=== PATIENT | male | born 1935 | race Caucasian/White ===

== ENCOUNTER 2016-08-17 14:11 | Inpatient (IN) | payer MEDICARE, OTHER ==
[2016-08-17 14:34] LABS: Hematocrit 41 % (42-52); Hemoglobin 13.3 g/dl (14.0-18.0); Mean Corpuscular HGB Conc 33 g/dl (31-36); Mean Corpuscular Hemoglobin 33 pg (27-31); Mean Corpuscular Volume 100 fL (80-94); Mean Platelet Volume 7 um3 (7.4-10.4); Red Blood Count 4.05 10^6/ul (4.0-5.4); Red Cell Distribution Width 14 % (10.5-15); White Blood Count 8.8 10^3/ul (3.5-10.8)
[2016-08-17 14:50] LABS: Troponin I 0.01 ng/mL (<0.04)
[2016-08-17 14:52] LABS: ALT 23 U/L (7-52); Albumin 3.6 g/dL (3.2-5.2); Alkaline Phosphatase 124 U/L (34-104); BUN/Creatinine Ratio 23.8 (8-20); Blood Urea Nitrogen 46 mg/dL (6-24); CO2 Carbon Dioxide 28 mmol/L (22-32); Calcium 9.3 mg/dL (8.6-10.3); Chloride 93 mmol/L (101-111); EGFR African American 43.2 (>60); EGFR Non-African American 33.6 (>60); Globulin 3.6 g/dL (2-4); Glucose 162 mg/dL (70-100); Sodium 130 mmol/L (133-145); Total Protein 7.2 g/dL (6.4-8.9)
[2016-08-17] MEDS ORDERED: NS 0.9% 1000 ML* 1,000 ML IV ONE (14:57)
--- NOTE | 2016-08-17 15:07 | RAD ---
Indication: Hypoxemia, ventricular tachycardia. Single frontal view of the chest performed at 1438 hours was reviewed. Comparison is made with previous exam dated 05/27/2016. Cardiomegaly is noted. No alveolar consolidation is noted. Patient status post transsternal thoracotomy. IMPRESSION: CARDIOMEGALY WITHOUT DEFINITE EVIDENCE OF ACTIVE CARDIOPULMONARY DISEASE IS NOTED.
[2016-08-17 15:22] LABS: TSH (Thyroid Stimulating Horm) 2.25 mcIU/mL (0.34-5.60)
[2016-08-17 16:30] LABS: Magnesium 2.3 mg/dL (1.9-2.7)
[2016-08-17 16:46] LABS: Urine Bilirubin Negative (Negative); Urine Glucose Negative (Negative); Urine Nitrite Negative (Negative)
[2016-08-17] MEDS ORDERED: NS 0.9% 500 ML* 500 ML IV ONE (17:05)
[2016-08-17] MEDS ORDERED: Acetaminophen TAB* 325 MG PO PRN (17:07)
[2016-08-17] MEDS ORDERED: Morphine INJ* 2 MG/ML 1 ML CARPUJECT IV PRN (17:07)
[2016-08-17] MEDS ORDERED: Metolazone TAB* 5 MG PO SCH (17:15)
[2016-08-17] MEDS: Clopidogrel TAB* 75 MG PO SCH (18:54)
[2016-08-17] MEDS: Albuterol 2.5 MG/3 ML NEB.SOL* (0.083%) INH SCH (19:31)
[2016-08-17] MEDS: Mometasone/Formoter 200/5 MDI INH SCH (20:09)
[2016-08-17] MEDS: Magnesium Oxide TAB* 400 MG PO SCH (21:22)
[2016-08-17] MEDS: traZODone TAB* 100 MG PO SCH (21:22)
[2016-08-17] MEDS: Heparin VIAL(*) 5000 UNITS/ML VIAL (FIVE THOUSAND) SUBCUT SCH (21:22)
--- NOTE | 2016-08-17 21:27 | HP ---
HISTORY AND PHYSICAL:* ADDENDUM: ASSESSMENT AND PLAN: Please note the patient has history of chronic renal disease, stage 3. His creatinine today is 1.9, in the past had been in the 1.5 range. His slight worsening of creatinine is most likely due to renal issues. At this point, he probably has had problems with breathing and had been diuresed may be slightly too much. Nevertheless, he is going to be placed on intravenous fluids as mentioned above . His diuretics for the time being will be unchanged. I will also ask Cardiology to see the patient in consultation in case they had any further recommendations[place] [id number]/[facility] #: [id number] MTDD
--- NOTE | 2016-08-17 21:36 | HP ---
ADDENDUM NOW INCLUDED ON THIS REPORT HISTORY AND PHYSICAL: DATE OF ADMISSION: 08/17/16 PRIMARY CARE PHYSICIAN: Amauri Flower MD WIRE ROPE FABRICATION SUPERVISOR: Luz Samuel MD CHIEF COMPLAINT: Syncope and collapse. HISTORY OF PRESENT ILLNESS: Curt Logan is an 80-year-old male with history of severe COPD, on oxygen at 8 L at home continuously as well as diastolic CHF and an episode of ventricular tachycardia for which he was hospitalized in mid of 2015. The patient went to his primary manager civil, Dr. Samuel, for a routine followup. He has had problems with chronic dyspnea that has been getting gradually worse and he increased his oxygen to 8 L approximately 6 months ago. His weight had been usually at 203 pounds and stated that that had been stable. If his weight increases over 3 pounds, he is supposed to take additional metolazone dose as directed by Dr. Samuel. Nevertheless, he came in to Dr. Samuel for a routine appointment with chronic issues with dyspnea and CHF. He had no new complaints. The patient stated that he "saves oxygen" on his trip to the doctor's office and usually takes 2 tanks of oxygen and when he is in the car, he lowers his oxygen level to 6 L to be able to actually get out of the house with the 2 portable tanks. He did it this time also. By the time he got into at Dr. Samuel's office, he was so short of breath that after sitting down, he, the family stated, "turned blue and collapsed." As per Dr. Samuel's note, the patient was noted to be tachypneic and lost consciousness. He was luis and blue in color. case monitor showed sinus rhythm with PVCs. Oxygen saturations were in the 70s and clammy fingers. Currently, the patient is evaluated in the emergency department. He is on Vapotherm at 25 L. He is doing well. He denies any chest pain or shortness of breath. He stated that usually he is sedentary and he does not get out of the house apart from going to doctor's appointments. At this time, the patient is going to be placed in the intensive care unit on Vapotherm due to his [id number] hypoxemic respiratory failure. I am afraid that that maybe a continuation of progression of his COPD and diastolic CHF. PAST MEDICAL HISTORY: 1. Severe COPD, oxygen dependent, 8 L. 2. History of diastolic CHF with EF documented in December 2015 at 50% to 55% with hypokinesis of RV and mild tricuspid regurgitation and PA pressures of 49 mmHg. 3. History of PVCs and an episode of asymptomatic ventricular tachycardia while hypomagnesemic in March 2016. 4. History of hypertension. 5. Hiatal hernia. 6. Dyslipidemia. 7. Gastroesophageal reflux disease. 8. History of aortic aneurysm in 2012, it measured 3.8 x 3.4 cm. 9. Status post coronary artery bypass grafting in 1998. 10. Appendectomy. 11. Hemorrhoidectomy. 12. History of carotid artery occlusion, status post left carotid artery endarterectomy. 13. History of 70% stenosis of right carotid. 14. History of atrial fibrillation in the past. 15. Peripheral vascular disease. CURRENT MEDICATIONS: Include: 1. Atrovent nebulizer twice a day as needed. 2. Magnesium oxide 400 mg b.i.d. 3. Symbicort 80/4.5 mcg 2 puffs b.i.d. 4. Atenolol 50 mg daily. 5. Potassium 10 mEq daily. 6. Amlodipine 5 mg daily. 7. Crestor 20 mg daily. 8. Plavix 75 mg daily. 9. Aspirin 81 mg daily. 10. Trazodone 100 mg at bedtime. 11. Oxygen at 8 L continuously. 12. Aldactone 25 mg daily. 13. Metolazone 2.5 mg on Tuesdays and Fridays and additional dose if weight increases over 3 pounds. 14. Furosemide 40 mg daily. ALLERGIES: Include ZOCOR, NIASPAN, LISINOPRIL, CARAFATE, and AMIODARONE. AMIODARONE caused severe lung diffusion abnormality in 2013. FAMILY HISTORY: Positive for father with history of heart disease. Mother with unknown cancer. SOCIAL HISTORY: The patient is a sharma. Quit smoking over 20 years ago. He still occasionally drinks alcohol. His health care proxy is his , Emily. The patient has a do not resuscitate, MOLST signed. REVIEW OF SYSTEMS: Please see history of present illness. The patient has been gradually more short of breath over the past several months. His weight has been stable. He denies any leg edema. He denies any cough or fevers. He stated that his abdomen had been always protuberant and that had been unchanged. His weight had been unchanged for the past several months. The patient stated that breathing is an "effort." He also stated that even going to the bathroom and back, he has to recover for approximately 5 minutes. His usual oxygenation at 8 L of oxygen at home is approximately 70% to 80% on the oxygen as he mentioned. All the remaining 14 systems were reviewed with the patient and were otherwise negative. PHYSICAL EXAMINATION GENERAL: The patient is a very pleasant 80-year-old male who is in no acute distress. The patient is alert, awake, and oriented x3. VITAL SIGNS: Blood pressure of 107/67, heart rate of 77 and irregular, respiratory rate 22, oxygen saturation 86% on 25 L of Vapotherm, and temperature of 98.9. HEENT: Head is atraumatic, normocephalic. Eyes: Pupils equal, round, reactive to light and accommodation. Oropharynx clear. Mucosa moist. NECK: Supple. No JVD. No bruit bilaterally. RESPIRATORY: Distant breath sounds bilaterally. No wheezes. CARDIOVASCULAR: Irregularly irregular rhythm. No murmur. ABDOMEN: Protuberant, soft, and nontender. Bowel sounds present in all 4 quadrants. EXTREMITIES: There is trace bilateral ankle edema. Pulses +2 bilaterally. There is no clubbing or cyanosis. NEUROLOGIC: Speech clear. Cranial nerves II through XII grossly intact. Motor strength is 5/5 bilaterally. SKIN: On evaluation of the skin, no ecchymotic areas or rashes noted. DIAGNOSTIC STUDIES/LAB DATA: Shows white blood cell count of 8.8, hemoglobin 13.3, hematocrit of 41, MCV of 100, and platelets of 247. Sodium was 130, potassium 3.9, chloride 93, carbon dioxide 28, BUN 46, and creatinine 1.93. Liver function tests were unremarkable apart from chronic elevation of alkaline phosphatase today of 124. Troponin of 0.01. Lactic acid was elevated at 3.8. TSH was 2.25. Urinalysis was unremarkable apart from low specific gravity at 1.008. EKG: The rate is irregular and there are multiple PACs, but it appears to be underlying sinus rhythm with multiple PACs and PVCs. The PVCs are comparable with prior. There are no acute ischemic changes. Portable chest x-ray, impression: "Cardiomegaly without definite evidence of active cardiopulmonary disease is noted." ASSESSMENT AND PLAN: 1. An 80-year-old male with a history of severe chronic obstructive pulmonary disease and diastolic congestive heart failure who presents passing out after arriving to the doctor's office for his appointment. The patient stated that his oxygenation is so bad that he usually does not venture to go outside of his home apart from going to the doctor's appointments. He does save his oxygen during the ride to the doctor's appointments. At this point, I believe the patient most likely was hypoxemic and collapsed. There is no evidence of cardiac abnormality that would precipitate the event, although the patient does have history of premature ventricular contractions and history of nonsustained ventricular tachycardia in the past. He is going to be placed on telemetry monitored bed. Due to his severe hypoxemia, it is going to be in the intensive care unit on Vapotherm. At this point, it appears that his chronic conditions are worsening of their baseline with no acute precipitating factor apart from that that the patient was acutely hypoxemic due to the above-mentioned circumstances. He did develop acute respiratory failure on chronic hypoxemic respiratory failure and syncope. At this point, I had a long discussion with the patient and the patient's family. I will place the patient in the intensive care unit, place him on nebulizers while awake and observe overnight. Second troponin is also going to be ordered. I believe that the patient's condition is a consequence of chronic progression and Palliative Care consult is going to be requested. The patient wishes to be do not resuscitate and he is agreeable to outpatient hospice if that were to be recommended. 2. In regards to his chronic diastolic congestive heart failure, he does not appear to be in exacerbation. The patient appears to be euvolemic and maybe a little bit prerenal. He is going to be placed on a total of 500 mL of intravenous hydration overnight. His weight at baseline should be 203 pounds. 3. In regards to his chronic obstructive pulmonary disease, as mentioned above , chronic progression with acute hypoxemic respiratory failure. Does not appear to be in exacerbation. Nevertheless, we will continue his nebulizers as well as his inhalers. 4. Gastroesophageal reflux disease: His Protonix is going to be changed to Prilosec while in the hospital. 5. In regards to history of atrial fibrillation: Currently, the patient appears to be in sinus rhythm with premature atrial contractions and premature ventricular contractions. 6. In regards to history of ventricular tachycardia: Once again, we will place the patient on telemetry monitored bed. There had been no evidence of ventricular tachycardia throughout his syncopal episode and appears to have been in sinus rhythm with premature ventricular contractions. 7. Code status: Do not resuscitate and was confirmed with the patient. His health care proxy is his . TIME SPENT: Approximately 68 minutes was spend in admission of this patient and more than half of that time was spent [id number] with the patient during the interview and physical exam. ADDENDUM: ASSESSMENT AND PLAN: Please note the patient has history of chronic renal disease, stage 3. His creatinine today is 1.9, in the past had been in the 1.5 range. His slight worsening of creatinine is most likely due to renal issues. At this point, he probably has had problems with breathing and had been diuresed may be slightly too much. Nevertheless, he is going to be placed on intravenous fluids as mentioned above . His diuretics for the time being will be unchanged. I will also ask Cardiology to see the patient in consultation in case they had any further recommendations. SCOTT PUENTES MD CC: Dr. Samuel; Dr. Flower* [id number]/[facility] #: [id number]/[facility] #: [id number] MTDD
[2016-08-18] MEDS: Albuterol 2.5 MG/3 ML NEB.SOL* (0.083%) INH SCH ×4 (02:11→20:56)
[2016-08-18 05:32] LABS: Hematocrit 36 % (42-52); Mean Corpuscular HGB Conc 33 g/dl (31-36); Mean Corpuscular Hemoglobin 33 pg (27-31); Mean Corpuscular Volume 98 fL (80-94); Mean Platelet Volume 7 um3 (7.4-10.4); Red Blood Count 3.67 10^6/ul (4.0-5.4); Red Cell Distribution Width 14 % (10.5-15); White Blood Count 6.6 10^3/ul (3.5-10.8)
[2016-08-18 05:43] LABS: BUN/Creatinine Ratio 24.1 (8-20); Calcium 8.9 mg/dL (8.6-10.3); EGFR African American 51.4 (>60); Potassium 3.8 mmol/L (3.5-5.0)
[2016-08-18] MEDS: Heparin VIAL(*) 5000 UNITS/ML VIAL (FIVE THOUSAND) SUBCUT SCH ×3 (06:20→21:30)
[2016-08-18] MEDS: Pantoprazole TAB (NF) 40 MG TAB PO SCH (06:21)
[2016-08-18] MEDS: Mometasone/Formoter 200/5 MDI INH SCH ×2 (09:33→20:56)
[2016-08-18] MEDS: Potassium Chlor TAB* 10 MEQ TAB.ER PO SCH (09:47)
[2016-08-18] MEDS: amLODIPine TAB* 5 MG PO SCH (09:47)
[2016-08-18] MEDS: Atenolol TAB* 50 MG PO SCH (09:48)
[2016-08-18] MEDS: Aspirin EC Low Dose* 81 MG TAB.EC PO SCH (09:48)
[2016-08-18] MEDS: Spironolactone TAB* 25 MG PO SCH (09:48)
[2016-08-18] MEDS: Furosemide TAB* 40 MG PO SCH (09:48)
[2016-08-18] MEDS: Magnesium Oxide TAB* 400 MG PO SCH ×2 (09:48→20:25)
--- NOTE | 2016-08-18 10:15 | PN ---
Subjective Date of Service: 08/18/16 Interval History: Patient seen this morning, eating breakfast after echo. Says he feels well, no SOB, "I don't need all this oxygen". Mild cough. No fever or chills. Says when he is home his SpO2 is usually high 70s, low 80s at rest. Family History: Unchanged from Admission Social History: Unchanged from Admission Past Medical History: Unchanged from Admission Objective Active Medications: Acetaminophen (Tylenol Tab*) 650 mg PO Q4H PRN Albuterol (Ventolin 2.5 Mg/3 Ml Neb.Cristina*) 2.5 mg INH [id number] AWAKE FEDE Amlodipine Besylate (Norvasc Tab*) 5 mg PO QAM FEDE Aspirin (Aspirin Ec Low Dose*) 81 mg PO QAM FEDE Atenolol (Tenormin Tab*) 50 mg PO QAM FEDE Clopidogrel Bisulfate (Plavix Tab*) 75 mg PO QPM FEDE Furosemide (Lasix Tab*) 40 mg PO DAILY FEDE Heparin Sodium (Porcine) (Heparin Vial(*)) 5,000 units SUBCUT Q8HR FEDE Magnesium Oxide (Magox 400 Tab*) 400 mg PO BID FEDE Metolazone (Zaroxolyn Tab*) 2.5 mg PO TUFR FEDE Mometasone Furoate/Formoterol Fumar (Dulera 200/5 Mdi*) 2 puff INH BID FEDE Morphine Sulfate (Morphine Inj (Syringe)*) 2 mg IV Q4H PRN Pantoprazole Sodium (Protonix Tab (Nf)) 40 mg PO 0600 FEDE Potassium Chloride (Klor Con Er Tab*) 10 meq PO DAILY FEDE Spironolactone (Aldactone Tab*) 25 mg PO DAILY FEDE Trazodone HCl (Desyrel Tab*) 100 mg PO BEDTIME FEDE Vital Signs 08/17/16 08/17/16 08/17/16 17:30 17:36 18:03 Temperature 98.8 F 96.9 F Pulse Rate 71 79 Respiratory 14 21 Rate Blood Pressure 106/70 100/73 (mmHg) O2 Sat by Pulse 92 96 Oximetry 08/17/16 08/17/16 08/17/16 19:15 19:30 19:32 Temperature Pulse Rate 51 74 82 Respiratory 19 20 12 Rate Blood Pressure 121/38 (mmHg) O2 Sat by Pulse 88 91 89 Oximetry 08/18/16 08/18/16 08/18/16 06:00 06:40 07:00 Temperature Pulse Rate 67 69 Respiratory 13 16 10 Rate Blood Pressure 93/48 88/55 (mmHg) O2 Sat by Pulse 99 98 Oximetry 08/18/16 08/18/16 08/18/16 07:54 08:00 09:00 Temperature 97.5 F Pulse Rate 77 68 Respiratory 20 15 Rate Blood Pressure 112/59 96/53 (mmHg) O2 Sat by Pulse 97 100 Oximetry Oxygen Devices in Use Now: High Flow Nasal Cannula - 40L/100% Appearance: Elderly, M, laying in bed in NAD Eyes: No Scleral Icterus Ears/Nose/Mouth/Throat: Mucous Membranes Moist Neck: NL Appearance and Movements; NL JVP Respiratory: Symmetrical Chest Expansion and Respiratory Effort, Clear to Auscultation Cardiovascular: NL Sounds; No Murmurs; No JVD, RRR Abdominal: NL Sounds; No Tenderness; No Distention Lymphatic: No Cervical Adenopathy Extremities: No Edema Skin: No Rash or Ulcers Neurological: Alert and Oriented x 3 Result Diagrams: 08/18/16 05:00 08/18/16 05:00 Microbiology and Other Data: Assess/Plan/Problems-Billing Assessment: Acute on chronic hypoxemic respiratory failure, TYE on CKD in an 80 yo M with hx of severe COPD on home 8L O2, chronic diasolic CHF, CKD3, HTN, GERD, AFib in the past, CAD s/p CABG - Patient Problems (1) Acute on chronic respiratory failure with hypoxemia Current Visit: Yes Comment: , severe COPD. Continue Vapotherm, wean O2 as able. Will discuss with Dr. Laguerre who he sees as outpatient as patient reports his baseline O2 sat is high 70s-low 80s. Continue home nebs. Does not seem to be in COPD exacerbation, do not see any role for steroids. CXR clear, does not seem to have any acute process ongoing. Palliative Care consulted. (2) Diastolic CHF Current Visit: No Comment: Seems to be euvolemic. Appreciate Cardiology assistance. For now continue atenolol, metolazone, lasix and spironolactone. Lasix. (3) Acute on chronic renal failure Current Visit: No Comment: Resolved with some light IVF overnight, seems to be back at baseline and euvolemic. Continue home diuretics for now. (4) GERD (gastroesophageal reflux disease) Current Visit: Yes Comment: Continue PPI (5) Ventricular tachycardia (paroxysmal) Current Visit: No Comment: May have possibly triggered event yesterday although hypoxemia seems more likely. Continue beta-shamika. (6) DVT prophylaxis Current Visit: No Comment: Heparin SQ (7) DNR (do not resuscitate) Current Visit: No
--- NOTE | 2016-08-18 11:18 | ECHO ---
Patient: CHETNA MICHEL [facility] Rec#: [id number] : 1935 Date: 08/18/2016 Age: 80y Height: 170.2 cm / 67.0 in Weight: 93.4 kg / 205.9 lbs Sex: M BSA: 2.05 Room#: ICU 8 Admit Date#: 08/17/2016 Type: Inpatient Referring: Kavita Goodrich MD Reading: Luz Samuel MD Territory Manager General Sales: Beverley Tapia RN RDCS CC: Amauri Flower MD Transthoracic Echocardiogram Indication: Respiratory abnormality BP: 93/48 HR: 72 Rhythm: A-Fib Findings History: CABG, A. fib, HTN, HLD, CHF, PVCs, severe COPD, AAA, PVD Technical Comments: The study is technically limited due to the patient's history of COPD. Left Ventricle: The left ventricular chamber size is normal. Mild concentric left ventricular hypertrophy is observed. Left ventricular systolic function is at the lower limits of normal. The estimated ejection fraction is 50-55%. Ventricular septal wall motion has a post-operative appearance. There is septal flattening of the interventricular septum consistent with right ventricular volume or pressure overload. The assessment of diastolic function is non-diagnostic. Left Atrium: The left atrium is moderately dilated. Right Ventricle: The right ventricle is mildly dilated. The right ventricular global systolic function is moderately reduced. Right Atrium: The right atrium is mild to moderately dilated. Aortic Valve: The aortic valve is trileaflet. The aortic valve leaflets are mildly thickened.mobile strands c/w Lambl's excresence seen on long axis view. There is moderate thickening of the left coronary cusp. Systolic excursion of the left coronary cusp is reduced. There is mild aortic regurgitation. Mitral Valve: There is posterior mitral annular calcification. The mitral valve leaflets are mildly thickened. There is mild mitral regurgitation. There is no evidence of mitral stenosis. Tricuspid Valve: The tricuspid valve leaflets are normal. There is moderate tricuspid regurgitation. There is evidence of severe pulmonary hypertension. Pulmonic Valve: The pulmonic valve appears normal. There is a trace pulmonic regurgitation. There is no pulmonic stenosis. Pericardium: A trivial pericardial effusion is visualized. A pericardial fat pad is visualized. Aorta: There is mild dilatation of the ascending aorta. The aortic arch is not well visualized. The aortic root is normal in size. Pulmonary Artery: The main pulmonary artery appears normal. Venous: The inferior vena cava is dilated. There is an approximate 50% respiratory change in the inferior vena cava dimension. Conclusions Mild concentric left ventricular hypertrophy is observed, septal dysychrony and flattening. The estimated ejection fraction is 50-55%. The right ventricle is mildly dilated and global systolic function is moderately reduced. There is mild aortic regurgitation. The left coronary cusp is immobile. There is mild mitral regurgitation. There is moderate tricuspid regurgitation. There is evidence of severe pulmonary hypertension: 66 mmHg. There is mild dilatation of the ascending aorta: 3.8 cm. Compared with echo of 01/22/16, LVEF is stable, RV function further reduced, previously mildly decreased systolic function, AI is stable, MR has increased from trace, TR has increased from mild, PA pressure has increased from 49 mmHg. Measurements Name Value Normal Range RVDdMajor (2D) 4.6 cm (2.2 - 4.4) RAd ISD 4CH 5.5 cm (3.4 - 4.9) RA (A4C)W 3.4 cm (2.9 - 4.6) IVSd (2D) 1 cm (0.6 - 1) LVPWd (2D) 1.1 cm (0.6 - 1) LVIDd (2D) 5.2 cm (3.6 - 5.4) Aortic Annulus 2.4 cm (1.4 - 2.6) Ao root diameter (2D) 3.5 cm (2.1 - 3.5) Ascending Ao 3.8 cm (2.1 - 3.4) LA dimension (AP) 2D 4.4 cm (2.3 - 3.8) LAd ISD 4CH 5.8 cm (2.9 - 5.3) LA ISD 4CH W 3.4 cm (2.5 - 4.5) Name Value Normal Range LA ESV SP 4CH (A/L) 55 ml - LA ESV SP 2CH (A/L) 95 ml - LA ESV BP (A/L) 77 ml - LA ESV BP (A/L) index 37.4 ml/m2 - LA ESV SP 4CH (MOD) 52 ml - LA ESV SP 2CH (MOD) 91 ml - Name Value Normal Range MV E-wave Vmax 1.1 m/sec - MV deceleration time 130 msec - LV septal e' Vmax 0.07 m/sec - LV lateral e' Vmax 0.09 m/sec - LV E:e' septal ratio 15.7 ratio - LV E:e' lateral ratio 12.2 ratio - Name Value Normal Range AV Vmax 1.3 m/sec - LVOT Vmax 0.9 m/sec - AR PHT 784 msec - Name Value Normal Range TR Vmax 3.8 m/sec - TR peak gradient 58 mmHg - RAP 8 mmHg - RVSP 66 mmHg - IVC diameter 2.4 cm - Name Value Normal Range PV Vmax 0.65 m/sec -
--- NOTE | 2016-08-18 15:43 | CONS ---
CC: Hospitalist; Dr. Amauri Flower CONSULTATION REPORT: DATE OF CONSULT: 08/18/16 REASON FOR CONSULT: Short of breath, status post loss of consciousness yesterday. CHIEF COMPLAINT: The patient's chief complaint is dyspnea on exertion. HISTORY OF PRESENT ILLNESS: Mr. Logan is an 80-year-old gentleman whom I have followed for man y years for coronary disease with a history of bypass. He also has significant COPD and is followed by Dr. Laguerre. The patient was scheduled to my office yesterday for a routine visit and it is very difficult for sean newberry to even walk around the house. He gets winded with any exertion at home. Today, he is able to gi ve more history than in the office yesterday. He thinks he just overdid it. There was quite a lot of exertion to get into the wheelchair, into the van, and then getting out of the van, into the offi ce, was a lot of exertion, and once he was in, what he remembers is just feeling as if he is going t o faint. He had a witnessed loss of consciousness in our waiting room. He turned blue and luis in color and stopped breathing. He was in a wheelchair and was resuscitated. He came around without requiring ba gging. He had a pulse and a blood pressure, no documentation of dysrhythmia and no shocks were requ ired and no epinephrine was required. The patient denied any history of chest pain, pressure, heaviness, or any of his anginal symptoms. In the emergency room, his chest x-ray was suboptimal, but did not show an acute process. Labs were unremarkable. The patient has been treated with an increased level of oxygen and he says currently he feels as if he is getting too much oxygen. The patient did not increase his oxygen coming to our office; in fact, he decreased it from his usua l 8 L to 6 L, the same on his tank. PAST MEDICAL HISTORY: Coronary artery disease with an inferior wall myocardial infarction in 1998 a nd a history of bypass surgery in 1999 (HUGHES to the LAD, saphenous vein graft to D1, saphenous vein graft to the PDA, jumping to OM-2 off the circ). He has had stents as recently as 2013 to an occlud ed right coronary artery graft. In 2013, his HUGHES was widely patent. 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 PAST SURGICAL HISTORY: Includes his bypass surgery, appendectomy, hemorrhoidectomy. CURRENT INPATIENT MEDICATIONS: Include: 1. Tylenol p.r.n. 2. Ventolin inhaler. 3. Norvasc 5 mg a day. 4. Aspirin 81 mg a day. 5. Tenormin 50 mg q.a.m. 6. Plavix 75 mg a day. 7. Lasix 40 mg a day. 8. Subcutaneous heparin. 9. Magnesium oxide 400 mg b.i.d. 10. Metolazone 2.5 mg q.a.m. 11. Dulera 200/5 MDI 2 puffs b.i.d. 12. Morphine p.r.n. 13. Protonix 40 mg a day. 14. Potassium chloride 10 mEq a day. 15. Aldactone 25 mg a day. 16. Desyrel 100 mg q.h.s. ALLERGIES: Include intolerance to statins, specifically Zocor and Niaspan; lisinopril; Carafate; am iodarone led to decrease in diffusion capacity. FAMILY HISTORY: Significant in his father had a history of a myocardial infarction. Mother had a h istory of cancer. SOCIAL HISTORY: The patient lives with his . He was a heavy smoker, smoking as recently as 200 9. Retired sharma. No history of alcohol or recreational drug abuse. REVIEW OF SYSTEMS: Negative for recent coughing. No increase in orthopnea. No fevers, chills, swe ats, hematuria, dysuria, change in bowel or bladder habits. It is positive for significant dyspnea with any exertion. He denies missing any medications or taking [id number] medications recentl y. All other review of systems are unremarkable. PHYSICAL EXAM: The patient is 5 feet 7 inches, weighs 212 pounds with a BMI of 33. Blood pressure t candy is 93/57, pulse is 78, temperature 98, and sats on a Vapotherm nasal cannula are 94%. General Appearance: Elderly gentleman lying at 30 degrees. Color is back to normal and appears energetic at least lying at rest, back to himself. HEENT: Pupils are equal and round. Mucous membranes modera tely moist. Neck: Thickened without appreciable increase in JVP. Breath sounds distant and diminis hed, but no wheezing, rales, or rhonchi. Coronary: S1, S2. Regular soft systolic murmur heard in the right upper sternal border. Abdomen: Rotund. Active bowel sounds. Soft, nontender. No hepat osplenomegaly. Lower extremities show trace edema. DIAGNOSTIC STUDIES/LAB DATA: Showed sodium 132, potassium 3.8, chloride 96, bicarb 31, BUN 40, crea tinine 1.66, glucose 109. Lactic acid on arrival yesterday was 3.8. ALT 23. Troponin #1 0.01, tro ponin #2 0.02. BNP of 223. TSH 2.25. Urinalysis unremarkable. White count 6.6, hemoglobin 12, telly telets 211. Chest x-ray: Suboptimal exam but no evidence of acute disease, evidence of cardiomegaly. Carotids from 03/25/16 show the patient is status post left carotid endarterectomy with greater than 50% occlusion on the left with calcific plaque. Echocardiogram today shows a mild left ventricular hypertrophy with an ejection fraction of 50% to 5 5%. Right ventricle is dilated with moderate decrease in systolic function. He has mild aortic ins ufficiency, mild mitral insufficiency, moderate tricuspid insufficiency, and a PA pressure of 66 mmH g, increased from 49 mmHg in December 2015. Holter monitor of 04/29/16 shows normal sinus rhythm from 53 to 112 beats a minute with 3700 PACs an d 18,500 PVCs with intermittent ventricular bigeminy. Single drop sinus beat. A 12-lead ECG from 08/17/16 consistent with atrial fibrillation versus ectopic regular sinus rhythm at 78 beats a minute with ventricular quadrigeminy and nonspecific ST and T wave flattening. SUMMARY: Mr. Logan is an 80-year-old gentleman with known coronary artery disease as well as s evere chronic obstructive pulmonary disease, oxygen dependent, who lost consciousness in our office, appeared extremely cyanotic, and was sent to the hospital for evaluation. The differential for his arrest would be respiratory, either hypoxic or hypercarbic or both or cardi ac in the form of tachy or bradyarrhythmias, we do not see evidence of acute ischemia. There is also evidence of increased diastolic congestive heart failure, likely related to his renal insufficiency and evidence of worsening cor pulmonale with moderate right ventricular dysfunction. From a cardiac standpoint, he is not a candidate for intervention for any underlying coronary diseas e, so I do not recommend stress testing, he would not tolerate and he is not a cath candidate. In terms of the possibility of tachy or bradyarrhythmias contributing, currently I continued some Te normin as he has even more PVCs in the past off this and optimizing his oxygenation status and metab olic status will help. In terms of his elevated PA pressures and right heart failure, if we can, he may benefit from more a ggressive diuresis, but his low blood pressure is going to limit this and he will need some preload in the right ventricle to maintain a blood pressure. Looking at the big picture, I think the patient's chronic obstructive pulmonary disease is his bigge st problem and he likely had a respiratory arrest. The patient told me that the hospice is coming by and he is very interested in this as any activity in the house leads to marked dyspnea and he feels it would be appropriate to get his care at home an d with his multiple problems of diastolic left heart failure, coronary artery disease, cor pulmonale , severe chronic obstructive pulmonary disease, renal insufficiency, he appears maximally or near ma ximally medically managed, but is still very precarious in terms of his health. I do not feel I have anything in addition to offer him and feel hospice is appropriate. We will fol low him distantly during this admission and I am happy to assist with home care if contacted by his medical team. Thank you for allowing me to assist in this very nice gentleman's care. [id number]/[facility] #: [id number]
[2016-08-18] MEDS: Clopidogrel TAB* 75 MG PO SCH (17:09)
--- NOTE | 2016-08-18 19:16 | CONS ---
CONSULTATION REPORT: DATE OF CONSULT: 08/18/16 PRIMARY CARE PHYSICIAN: Amauri Flower MD REQUESTING PHYSICIAN FOR PALLIATIVE CARE CONSULT: Kavita Goodrich MD REASON FOR CONSULT: Evaluation for eligibility for hospice. HISTORY OF PRESENT ILLNESS: This is an 80-year-old male with past medical history of end-stage COPD, on 8 L of oxygen, who has declined over the past 2 months, who presented to the emergency room via EMS after having a respiratory arrest turning apneic when he went to go see his social work program coordinator, Dr. Samuel, on the . I was able to meet with the as well who was present. The patient and Dr. Nixon were present as well and the states that he has declined over the past 2 months with increasing shortness of breath and inability to ambulate more than 3 to 4 feet without getting significantly shortness of breath. He does remain independent in terms of ambulating and getting dressed and bathing, but he states he mostly sits around all day. He does not leave the home except when he has to go to the doctor. He states he felt that he he was rushing to his doctor's appointment to Dr. Samuel's office and he has to save his oxygen to go into the doctor. By the time he arrived to the social work program coordinator's office, he had turned blue and collapsed. His sats were 70s and he was clammy. When he arrived to the emergency room, they placed him on Vapotherm. He improved in his respiratory status and he was admitted to the ICU. According to the patient, he denies any pain. He states he does not typically get very anxious when he gets short of breath. He feels that his respiratory status is back to his baseline. When discussing his wants for his end of life, he wants to at home. He enjoys being at home, doing puzzles, reading, and Facebook. PAST MEDICAL HISTORY: 1. End-stage COPD, on chronic oxygen at 8 L. 2. History of diastolic heart failure with ejection fraction of 50% to 55%. 3. History of hypertension. 4. History of hiatal hernia. 5. Dyslipidemia. 6. GERD. 7. History of aortic aneurysm. 8. History of coronary artery disease, status post bypass. 9. History of carotid artery stenosis, status post endarterectomy. 10. History of atrial fibrillation. 11. Peripheral vascular disease. MEDICATIONS: Inpatient medications are: 1. Tylenol 650 mg every 4 hours as needed for pain. 2. Albuterol nebulizer every 6 hours while awake. 3. Aspirin 81 mg daily. 4. Atenolol 50 mg daily in the morning. 5. Plavix 75 mg in the evening. 6. Lasix 40 mg daily. 7. Heparin subcutaneous t.i.d. 8. Magnesium oxide 400 mg p.o. b.i.d. 9. Metolazone 2.5 mg Tuesday and Tuesday. 10. Advair 2 puffs inhaled twice a day. 11. Morphine 2 mg every 4 hours as needed for pain. 12. Pantoprazole 40 mg daily. 13. Potassium chloride 10 mEq daily. 14. Spironolactone 25 mg p.o. daily. 15. Amlodipine 5 mg daily. 16. Trazodone 100 mg at bedtime. ALLERGIES: SIMVASTATIN, develops pain. FAMILY HISTORY: His mother is from unknown cancer. His father with coronary artery disease. SOCIAL HISTORY: As mentioned, the patient lives at home with his who is his healthcare proxy, whose name is Emily Logan. He is a do not resuscitate, do not intubate. He does have 5 grown children. One of his sons lives next door and his another son lives in proximity. He is a [id number] smoker, who quit over 20 years ago. He is retired from [employer] and also was a sharma. REVIEW OF SYSTEMS: As mentioned in the HPI. PHYSICAL EXAM: Vitals: Temperature is 98, pulse rate 83, respiratory rate 19, oxygen saturation persistently in the low 80s on 15 L nasal cannula, blood pressure 86/46. General: Intermittently conversationally dyspneic, no acute distress. His is at the bedside. HEENT: Neck supple. No lymphadenopathy. Mucous membranes are moist. Eyes anicteric. Head normocephalic. Cardiac: Distant heart sounds. Regular rate and rhythm. Soft systolic murmur heard throughout. Respiratory: Poor aeration. Diminished breath sounds. Prolonged expiratory phase. Unable to appreciate any wheezing, rhonchi, or rales. Abdomen: Morbidly obese. Soft, nontender. Extremities: Trace pretibial edema. +1 DPs. Neurologic: Alert and oriented x3. No focal neurologic deficits. DIAGNOSTIC STUDIES/LAB DATA: White count 6.6, hemoglobin 12, hematocrit 36, platelets 211. Sodium 132, potassium 3.8, chloride 96, bicarb 31, BUN 40, creatinine 1.66, glucose 109, calcium 8.9. Urinalysis unremarkable. Radiographic data: Chest x-ray shows cardiomegaly without definite evidence of acute cardiopulmonary disease. EKG appears to be sinus with PACs and PVCs. Echocardiogram: Mild LVH, ejection fraction 50% to 55%, mildly dilated right ventricle, globally systolic function moderately reduced, moderate tricuspid regurg, severe pulmonary hypertension of 66. His pulmonary pressure has increased from his last echo in December of 2015. This is an 80-year-old male with past medical history of end-stage chronic obstructive pulmonary disease, on chronic 8 L of oxygen, who presents to the emergency room with significant hypoxic event resulting in syncope and collapse. Assessment/Recommendation: We discussed options and he is agreeable to enrolling with hospice at home. As it stands, the patient is able to do some of his own activities of daily living and is able to be home without constant supervision. His does work. They are both agreeable to having hospice in the home. We did discuss that if he becomes more deconditioned and needs more 24-hour care that he may be a candidate for the hospice residence at that time, if care cannot be provided more closely at the house. The and the patient are aware of this. Dr. Nixon was agreeable to this as well. PATIENT TIME: Greater than 60 minutes was spent doing the consultation, more than half the time was spent in direct patient contact. CC: Amauri Flower MD * [id number]/[facility] #: [id number] ADDISON
[2016-08-18] MEDS ORDERED: Morphine ORAL.SOLN 10 mg* 2 MG/ML UDC 5 ml PO PRN (19:37)
[2016-08-18] MEDS: traZODone TAB* 100 MG PO SCH (20:25)
[2016-08-19] MEDS: Albuterol 2.5 MG/3 ML NEB.SOL* (0.083%) INH SCH ×3 (03:40→13:57)
[2016-08-19] MEDS: Pantoprazole TAB (NF) 40 MG TAB PO SCH (05:26)
[2016-08-19] MEDS: Heparin VIAL(*) 5000 UNITS/ML VIAL (FIVE THOUSAND) SUBCUT SCH (05:26)
[2016-08-19 07:11] VITALS: BP 90/56
[2016-08-19] MEDS: Mometasone/Formoter 200/5 MDI INH SCH (07:51)
[2016-08-19] MEDS: Furosemide TAB* 40 MG PO SCH (08:22)
[2016-08-19] MEDS: Magnesium Oxide TAB* 400 MG PO SCH (08:23)
[2016-08-19] MEDS: Potassium Chlor TAB* 10 MEQ TAB.ER PO SCH (08:23)
[2016-08-19] MEDS: amLODIPine TAB* 5 MG PO SCH (08:24)
[2016-08-19] MEDS: Aspirin EC Low Dose* 81 MG TAB.EC PO SCH (08:24)
[2016-08-19] MEDS: Spironolactone TAB* 25 MG PO SCH (08:24)
--- NOTE | 2016-08-19 08:59 | DCNOTE ---
Patient seen this morning with Dr. Casas present. Says he feels well this morning, about his baseline. Has been ambulating to the bathroom and back. On exam, some slight wheezing throughout, otherwise clear, RRR, s1 and s2 present, no m/g/r, trace LE edema Plan to d/c home today on home hospice which everyone is in agreement with.
[2016-08-19] MEDS: Atenolol TAB* 50 MG PO SCH (09:02)
--- NOTE | 2016-08-19 21:29 | DS ---
DISCHARGE SUMMARY: DATE OF ADMISSION: 08/17/16 DATE OF DISCHARGE: 08/19/16, on home hospice. PRIMARY CARE PHYSICIAN: Dr. Flower. CARDIOLOGY: Luz Samuel MD PRINCIPAL DISCHARGE DIAGNOSIS: Acute on chronic hypoxemic respiratory failure. SECONDARY DIAGNOSES: 1. Severe oxygen dependent chronic obstructive pulmonary disease. 2. Diastolic congestive heart failure. 3. Hypertension. 4. Gastroesophageal reflux disease. 5. Paroxysmal atrial fibrillation. STUDIES DONE DURING HOSPITALIZATION: Chest x-ray, impression: Cardiomegaly without definite evidence of active cardiopulmonary disease. Transthoracic echocardiogram. Conclusion: Mild concentric LVH, septal dyssynchrony and flattening, estimated ejection fraction of 50 to 55%. Right ventricle is mildly dilated and global systolic function is moderately reduced. There is mild aortic regurgitation. The left coronary cusp is immobile. There is mild mitral regurgitation. Moderate tricuspid regurgitation. Evidence of severe pulmonary hypertension, mild dilatation of the ascending aorta 3.8 cm. CONSULTATIONS DURING HOSPITALIZATION: 1. Luz Samuel MD, Cardiology. 2. Natalia Messer MD, Palliative Care. HISTORY OF PRESENT ILLNESS AND HOSPITAL SUMMARY: Please see the full history and physical by Dr. Kavita Goodrich, for full details. Briefly, Mr. Logan is an 80- year-old male with past medical history as above who presented to the hospital after he became dyspneic, hypoxic, cyanotic and possibly had a syncopal episode at Dr. Samuel's office at a routine visit. The patient was noted to have O2 saturations in the 70s. He was brought to the emergency department, initially placed on Vapotherm and placed in the ICU. The patient underwent an extensive workup with no clear etiology for his breathing issues aside from progression of his chronic disease. He did not seem to have any significant fluid overload at this time. Chest x-ray was clear. There are no signs of infection. The patient did try to travel with lower oxygen that he uses at home and this may have contributed. The consult with Palliative Care was discussed with the patient. He was very open to this. Dr. Samuel also felt that this was appropriate. Dr. Messer ( Palliative Care) felt that the patient would qualify for home hospice. This was arranged and the patient was discharged home with his previous medication regimen along with p.r.n. morphine as needed for shortness of breath. Dr. Flower is aware and will follow the patient as an outpatient. TIME SPENT: Total time spent on this discharge, 40 minutes. This is a summary of the hospitalization. Please see the full medical record for further details. CC: Dr. Flower; Luz Samuel MD* [id number]/[facility] #: [id number] MTDD
--- NOTE | 2016-09-01 23:46 | ED ---
I, Titus,Belkis, scribed for Danie Zarco MD on 08/17/16 at 1424 . Syncope/Near Syncope - HPI Summary HPI Summary: This 80 y/o male presents to ED after witnessed LOC earlier today PM. Pt was waiting for his appointment at Dr. Samuel's office when pt was noted with tachypnea and subsequently witnessed with a syncopal episode while sitting on wheel chair. Pt was noted with oxygen sat ~ 77 % on oxygen and PVC noted in monitors en route. Upon arrival, Pt denies feeling any more CP and SOB than his baseline. Oxygen sat at time of initial evaluation is ~865. PMHx is significant for COPD, HTN, HLD, CAD s/p bypass graft, and [place] in 1998. Pt is on 8 L of home oxygen at his baseline, and uses 6 L oxygen in car. Last stress test and nuclear test were in 2013. Pt's status is DNR. - History Of Current Complaint Hx Obtained From: Patient, EMS, Medical Records Onset/Duration: Sudden Onset, Still Present Timing: Minutes Context: Witnessed Activity At Onset: At Rest Associated Head Trauma: No Aggravating Factor(s): Nothing Alleviating Factor(s): Nothing Associated Signs And Symptoms: Shortness Of Breath - chronic - Allergies/Home Medications Allergies/Adverse Reactions: Allergies Allergy/AdvReac Type Severity Reaction Status Date / Time Simvastatin [From Zocor] Allergy Pain Verified 03/05/16 18:31 Home Medications: Home Medications Pantoprazole TAB (NF) [Protonix TAB (NF)] 40 mg PO QAM 08/17/16 [History Confirmed 08/17/16] Potassium Chlor TAB* [Klor Con ER TAB 10 MEQ*] 10 meq PO DAILY 08/17/16 [ History Confirmed 08/17/16] PMH/Surg Hx/FS Hx/Imm Hx Endocrine/Hematology History: Reports: Hx Anticoagulant Therapy - COUMADIN Denies: Hx Diabetes Cardiovascular History: Reports: Hx Angina, Hx Coronary Artery Disease, Hx Hypercholesterolemia, Hx Hypertension, Hx Peripheral Vascular Disease, Hx Valvular Heart Disease - AORTIC STENOSIS, Other Cardiovascular Problems/ Disorders - Abdominal Aortic Aneurysm (monitored) Denies: Hx Congestive Heart Failure - new onset this admission, Hx Pacemaker/ ICD Respiratory History: Reports: Hx Chronic Obstructive Pulmonary Disease (COPD) Denies: Hx Asthma, Other Respiratory Problems/Disorders GI History: Reports: Hx Gastroesophageal Reflux Disease, Hx Hiatal Hernia - on protonix History: Denies: Hx Renal Disease Musculoskeletal History: Reports: Hx Arthritis, Hx Back Problems Sensory History: Reports: Hx Contacts or Glasses, Hx Hearing Aid - not here Opthamlomology History: Reports: Hx Contacts or Glasses Neurological History: Reports: Other Neuro Impairments/Disorders - hx left carotid endartarectomy, [facility] PT Psychiatric History: Denies: Hx Panic Disorder - Surgical History Surgery Procedure, Year, and Place: [place] and CABG 06/2000, CARDIAC CATH WITH STENT 2007 and 2013 -PT HAS A CARD & PROMUS CONDITIONAL 5 UP TO 3T (PROMUS PLACED AT [facility] [place]. [facility] [place] 2006. APPENDECTOMY,HEMORRHOIDECTOMY. Left Carotid Endartarectomy 09/2005 Hx Anesthesia Reactions: No - Immunization History Date of Tetanus Vaccine: unknown Date of Influenza Vaccine: unknown - Family History Known Family History: Positive: Cardiac Disease - Father - Social History Alcohol Use: Daily Alcohol Amount: 1x day Substance Use Type: Reports: None Hx Tobacco Use: Yes - 40 yrs of smoking, quit about 15-20 yrs ago Smoking Status (MU): Former Smoker Have You Smoked in the Last Year: No Review of Systems Negative: Fever Negative: Erythema Negative: Sore Throat Negative: Chest Pain Positive: Shortness Of Breath Positive: Vomiting, Nausea. Negative: Abdominal Pain Negative: Edema Negative: Rash Positive: Syncope All Other Systems Reviewed And Are Negative: Yes Physical Exam - Summary Physical Exam Summary: Constitutional: Well-developed, Well-nourished, Alert. (-) Distressed Skin: Warm, Dry HENT: Eyes: Conjunctiva normal Neck: Musculoskeletal ROM normal neck. (-) JVD, (-) Stridor, (-) Tracheal deviation Cardio: Rhythm regular, rate normal, Heart sounds normal; Intact distal pulses ; The pedal pulses are 2+ and symmetric. Radial pulses are 2+ and symmetric. (- ) Murmur Pulmonary/Chest wall: Very diminished breath sound Abd: Soft. (-) Tenderness, (-) Distension, (-) Guarding, (-) Rebound Musculoskeletal: (-) Edema Lymph: (-) Cervical adenopathy Neuro: Alert, Oriented x3, Strength normal, Cranial nerves II-XII are grossly intact. (-) Dysmetria, (-) Nystagmus, (-) Ataxia by finger to nose testing, (-) Sensory deficit. Psych: Mood and affect Normal Triage Information Reviewed: Yes Vital Signs Reviewed: Yes Diagnostics - Laboratory Result Diagrams: 08/17/16 14:22 08/17/16 14:22 Lab Statement: Any lab studies that have been ordered have been reviewed, and results considered in the medical decision making process. - Radiology CXR Xray Interpretation: Positive (See Comments) - CARDIOMEGALY WITHOUT DEFINITE EVIDENCE OF ACTIVE CARDIOPULMONARY DISEASE IS NOTED. Radiology Interpretation Completed By: Radiologist - EKG 1413 EKG Rhythm: Atrial Fibrillation Ectopy: PVCs - frequent Course/Dx Assessment/Plan: This 80 y/o male presents to ED after a witnessed syncopal episode at Dr. Samuel office [employer]. He was sitting on wheelchair at the time of onset. Pt denies any CP or SOB more than his baseline and states that his baseline oxygen sat runs ~ 80's % on 8 L home oxygen. He is noted with 77% oxygen sat. Bloodwork indicates elevated trop, lactic acid of 3.8, and elevated alkaline phosphatase. CXR indicates cardiomegaly without active cardiopulmonary dz. Physical exam findings and bloodwork/CXR imaging results are discussed with Dr. Thibodeaux, who accepts pt's admission for further cardiac workup. - Diagnoses Provider Diagnoses: Syncope, Dehydration - Physician Notifications Discussed Care Of Patient With: Dr. Thibodeaux (Hospitalist) at 1515 PM Time Discussed With Above Provider: 15:15 Instructed by Provider To: Admit As Inpatient Discharge - Discharge Plan Condition: Stable Disposition: ADMITTED TO [facility] documentation as recorded by the Titus leone Soohyun accurately reflects the service I personally performed and the decisions made by me, Danie Zarco MD.
== END 2016-08-19 14:35 | disposition hospice, home (50) | DRG 189 ==
LOC: ED 14:11 → ICU 17:07 → MED 08-18 18:01
PROVIDERS: ADMIT Internal Medicine; ATTEND Hospitalist
DX: J96.21 Acute and chronic respiratory failure with hypoxia (principal); N17.9 Acute kidney failure, unspecified; I47.2 Ventricular tachycardia; I50.32 Chronic diastolic (congestive) heart failure; I13.0 Hypertensive heart and chronic kidney disease with heart failure and stage 1 through stage 4 chronic kidney disease, or unspecified chronic kidney disease; I48.0 Paroxysmal atrial fibrillation; I27.2 Other secondary pulmonary hypertension; Z99.81 Dependence on supplemental oxygen; R55 Syncope and collapse; J44.9 Chronic obstructive pulmonary disease, unspecified; E78.5 Hyperlipidemia, unspecified; K21.9 Gastro-esophageal reflux disease without esophagitis; I71.9 Aortic aneurysm of unspecified site, without rupture; I73.9 Peripheral vascular disease, unspecified; Z66 Do not resuscitate; N18.3 Chronic kidney disease, stage 3 (moderate); I08.3 Combined rheumatic disorders of mitral, aortic and tricuspid valves; I77.819 Aortic ectasia, unspecified site; Z95.1 Presence of aortocoronary bypass graft; Z88.8 Allergy status to other drugs, medicaments and biological substances; Z82.49 Family history of ischemic heart disease and other diseases of the circulatory system; Z80.9 Family history of malignant neoplasm, unspecified; Z87.891 Personal history of nicotine dependence; Z72.89 Other problems related to lifestyle
CPT/HCPCS: 36415; 71010; 80048; 80053; 81003; 83605; 83735; 83880; 84443; 84484; 85025; 87641; 93005; 93306; 94640; 94760; A9270-GY; J1644